=== PATIENT | male | born 1970 | race Caucasian/White ===

== ENCOUNTER 2017-01-27 09:41 | Emergency (ER) | payer SELFPAY ==
[~2017-01-27] VITALS: Ht 180.3 cm; Wt 95.5 kg
[~2017-01-27 09:41] MED LIST: COMMODE 3:1; DOCU1CAP39 PO; FENT25DI TD; GABA100C2 PO; LEVO.1 PO; PERC10TA27 PO; WALKER ROLLING; WHEELCHAIR RENTAL RA; Z.0.WALKERPLAT
[2017-01-27 09:46] VITALS: BP 141/98; PULSE 96; RESP 16; TEMP 98; O2SAT 100
[2017-01-27 09:58] VITALS: O2SAT 98
[2017-01-27] MEDS ORDERED: cloNIDine HCL 0.2 MG TAB PO ONE (10:00)
[2017-01-27] MEDS ORDERED: LEVO100T5 PO (10:04)
[2017-01-27] MEDS ORDERED: CLON0.2T PO (10:05)
--- NOTE | 2017-01-27 10:05 | PD ---
HPI Chief Complaint: Abdominal Pain Time Seen by Provider: 09:51 Travel History International Travel<30 days: No Contact w/Intl Traveler<30days: No Traveled to known affect area: No History of Present Illness HPI Patient is a 46-year-old male with history of polysubstance abuse here with complaint of abdominal pain and hoarse voice. Patient went on a binge recently having used crack cocaine and heroin. States that after smoking crack cocaine he lost his voice and it has been slowly coming back. States that sometimes he has difficulty projecting his speech. Additionally, patient has had one week of crampy abdominal pain that is intermittent. It seems to be better in the warning and worse in the afternoon. Patient states that he was on Subutex after detoxing from heroin for 4 days at a detox facility and it seemed to be after he left the detox facility that the abdominal pain came. He states that this feels similar to his history of withdrawal. He has not had any nausea, vomiting. He does note some loose, frothy stools. No recent travel, sick contacts, fevers or chills. PFSH Past Medical History Autoimmune Disease: No Cancer: No Cardiovascular Problems: No Diabetes: No Endocrine: Yes Gastrointestinal Disorders: No Genitourinary: No Immune Disorder: No Implanted Vascular Access Dvce: No Musculoskeletal: No Neurologic: No Psychiatric: No Reproductive: No Respiratory: No Immunizations Current: No Thyroid Disease: Yes Tetanus Vaccination: < 5 Years Past Surgical History Abdominal Surgery: No Cardiac Surgery: No Ear Surgery: No Endocrine Surgery: No Eye Surgery: No Genitourinary Surgery: No Gynecologic Surgery: No Oral Surgery: No Thoracic Surgery: No Social History Alcohol Use: No Tobacco Use: No Substance Use: Yes Allergies-Medications (Allergen,Severity, Reaction): Coded Allergies: No Known Allergies (Unverified , 01/27/17) Reported Meds & Prescriptions Reported Meds & Active Scripts Active Clonidine (Clonidine HCl) 0.2 Mg Tab 0.2 Mg PO TID PRN Levothyroxine (Levothyroxine Sodium) 100 Mcg Tab 100 Mcg PO DAILY Review of Systems Except as stated in HPI: all other systems reviewed are Neg Physical Exam Narrative GENERAL: Well-appearing male in no acute distress SKIN: Focused skin assessment warm/dry. HEAD: Normocephalic. EYES: No scleral icterus. No injection or drainage. ENT: Posterior pharynx is clear without tonsillar erythema, exudate. Mucous membranes pink and moist. NECK: Trachea midline. No JVD. Voice is somewhat hoarse with poor projection. CARDIOVASCULAR: Regular rate and rhythm. RESPIRATORY: No accessory muscle use. GASTROINTESTINAL: Abdomen soft, non-tender, nondistended. MUSCULOSKELETAL: Normal gait NEUROLOGICAL: Awake and alert. Normal speech. PSYCHIATRIC: Appropriate mood and affect; insight and judgment normal. Data Data Last Documented VS Vital Signs Date Time Temp Pulse Resp B/P Pulse Ox O2 Delivery O2 Flow Rate FiO2 01/27/17 10:22 81 16 136/86 97 Room Air 01/27/17 09:46 98.0 Orders Complete Blood Count With Diff (01/27/17 09:57) Comprehensive Metabolic Panel (01/27/17 09:57) Lipase (01/27/17 09:57) Oximetry (01/27/17 09:57) Clonidine (Catapres) (01/27/17 10:00) Dexamethasone Inj (Decadron Inj) (01/27/17 10:15) Labs Laboratory Tests Test 01/27/17 10:00 White Blood Count 9.9 TH/MM3 Red Blood Count 5.07 MIL/MM3 Hemoglobin 15.3 GM/DL Hematocrit 43.9 % Mean Corpuscular Volume 86.5 FL Mean Corpuscular Hemoglobin 30.2 PG Mean Corpuscular Hemoglobin 34.9 % Concent Red Cell Distribution Width 13.3 % Platelet Count 249 TH/MM3 Mean Platelet Volume 7.1 FL Neutrophils (%) (Auto) 68.6 % Lymphocytes (%) (Auto) 20.5 % Monocytes (%) (Auto) 7.1 % Eosinophils (%) (Auto) 2.9 % Basophils (%) (Auto) 0.9 % Neutrophils # (Auto) 6.8 TH/MM3 Lymphocytes # (Auto) 2.0 TH/MM3 Monocytes # (Auto) 0.7 TH/MM3 Eosinophils # (Auto) 0.3 TH/MM3 Basophils # (Auto) 0.1 TH/MM3 CBC Comment DIFF FINAL Differential Comment Sodium Level 141 MEQ/L Potassium Level 4.0 MEQ/L Chloride Level 106 MEQ/L Carbon Dioxide Level 27.0 MEQ/L Anion Gap 8 MEQ/L Blood Urea Nitrogen 14 MG/DL Creatinine 0.94 MG/DL Estimat Glomerular Filtration 87 ML/MIN Rate Random Glucose 97 MG/DL Calcium Level 9.3 MG/DL Total Bilirubin 0.4 MG/DL Aspartate Amino Transf 11 U/L (AST/SGOT) Alanine Aminotransferase 24 U/L (ALT/SGPT) Alkaline Phosphatase 106 U/L Total Protein 8.3 GM/DL Albumin 4.0 GM/DL Lipase 222 U/L [facility] Medical Decision Making Medical Screen Exam Complete: Yes Emergency Medical Condition: Yes Medical Record Reviewed: Yes Differential Diagnosis 46-year-old male here with complaint of 2 complaints. First with regards to his hoarse voice, this is likely an inhalant injury from smoking cocaine. Patient has evidence of laryngitis with hoarse voice and poor projection. With regards to his abdominal pain, this isn't present for a week since withdrawing from heroin, he does not have classic withdrawal symptoms of nausea, vomiting, diarrhea but does have some loose stools. Overall his abdominal examination is benign making peritoneal pathology less likely. Favor residual withdrawal symptoms versus enteritis. Narrative Course Patient placed on monitor. Given clonidine for possible withdrawal symptoms, single dose of Decadron for laryngitis. CBC, CMP, lipase obtained and unremarkable. Patient was reassured and will be discharged to home with clonidine when necessary. He also requested a refill of his levothyroxine. Diagnosis Primary Impression: Withdrawal complaint Additional Impressions: Laryngitis Medication refill Abdominal pain Qualified Code: R10.84 - Generalized abdominal pain Referrals: Primary Care Physician as needed Patient Instructions: Abdominal Pain (ED), General Instructions, Laryngitis (ED ) Additional Instructions: Synthroid as prescribed. Clonidine as needed for abdominal pain and withdrawal symptomatology. Follow-up with primary care provider if symptoms persist. Med/Other Pt SpecificInfo: Prescription(s) given Scripts Clonidine 0.2 Mg Tab0.2 Mg PO TID PRN (WITHDRAWAL) #15 TAB Ref 0 Prov:Bri Roblero MD 01/27/17 Levothyroxine 100 Mcg [id number] Mcg PO DAILY #30 TAB Ref 0 Prov:Bri Roblero MD 01/27/17 Disposition: 01 DISCHARGE HOME Condition: Stable Bri Roblero MD Jan 27, 2017 10:05
[2017-01-27 10:14] LABS: AUTOMATED NEUTROPHIL # 6.8 TH/MM3 (1.8-7.7); BASOPHIL # 0.1 TH/MM3 (0-0.2); BASOPHIL % 0.9 % (0.0-2.0); EOSINOPHIL # 0.3 TH/MM3 (0-0.4); EOSINOPHIL % 2.9 % (0.0-4.0); HEMATOCRIT 43.9 % (39.0-51.0); HEMO FLAGS DIFF FINAL; LYMPH % 20.5 % (9.0-44.0); MEAN CELL VOLUME 86.5 FL (80.0-100.0); MEAN CORPUSCULAR HEMOGLOBIN 30.2 PG (27.0-34.0); MEAN CORPUSCULAR HGB CONC 34.9 % (32.0-36.0); MONO % 7.1 % (0.0-8.0); NEUT % 68.6 % (16.0-70.0); PLATELET COUNT 249 TH/MM3 (150-450); RED BLOOD COUNT 5.07 MIL/MM3 (4.50-5.90); RED CELL DISTRIBUTION WIDTH 13.3 % (11.6-17.2); WHITE BLOOD COUNT 9.9 TH/MM3 (4.0-11.0)
[2017-01-27] MEDS ORDERED: DEXAMETHASONE SOD PHOS 4 MG/ML VIAL IM ONE (10:15)
[2017-01-27 10:22] VITALS: BP 136/86; PULSE 81; RESP 16; O2SAT 97
[2017-01-27 10:34] LABS: ANION GAP 8 MEQ/L (5-15); AST (GOT) 11 U/L (15-37); BLOOD UREA NITROGEN 14 MG/DL (7-18); CHLORIDE 106 MEQ/L (98-107); GLOMERULAR FILTRATION RATE 87 ML/MIN (>89); SODIUM (NA) 141 MEQ/L (136-145)
[2017-01-27 10:38] LABS: ALKALINE PHOSPHATASE 106 U/L (45-117); ALT (GPT) 24 U/L (12-78); TOTAL BILIRUBIN ADULT 0.4 MG/DL (0.2-1.0)
== END 2017-01-27 11:01 | disposition home or self-care (01) ==
LOC: NEPD 09:41
DX: F19.939 Other psychoactive substance use, unspecified with withdrawal, unspecified (principal); J04.0 Acute laryngitis; R10.84 Generalized abdominal pain; R49.0 Dysphonia; R19.5 Other fecal abnormalities; E07.9 Disorder of thyroid, unspecified; Z76.0 Encounter for issue of repeat prescription
CPT/HCPCS: 80053; 83690; 85025; 96372; 99284; J1100